=== PATIENT | female | born 1990 | race African-American/Black ===

== ENCOUNTER → 2018-01-18 17:20 | Emergency (ER) | payer OTHER ==
[2018-01-18 18:14] LABS: ABS Basophils 0.1 10^3/ul (0-0.2); ABS Eosinophils 0.3 10^3/ul (0-0.6); ABS Lymphocytes 2.2 10^3/ul (1.0-4.8); ABS Monocytes 0.5 10^3/ul (0-0.8); ABS Neutrophils 2.7 10^3/ul (1.5-7.7); ABS Nucleated RBC 0 10^3/ul; Hematocrit 42 % (35-47); Hemoglobin 14.1 g/dl (12.0-16.0); Lymphocyte % 38.3 % (25-47); Mean Corpuscular HGB Conc 34 g/dl (31-36); Mean Corpuscular Hemoglobin 29 pg (27-31); Mean Corpuscular Volume 87 fL (80-97); Mean Platelet Volume 7.6 um3 (7.4-10.4); Nucleated Red Blood Cells % 0.1; Platelet Count 404 10^3/ul (150-450); Red Blood Count 4.83 10^6/ul (4.0-5.4); Red Cell Distribution Width 14 % (10.5-15); White Blood Count 5.8 10^3/ul (3.5-10.8)
[2018-01-18 18:34] VITALS: BP 124/88
[2018-01-18 18:35] LABS: EGFR Non-African American 115.1 (>60)
--- NOTE | 2018-01-18 18:47 | RAD ---
HISTORY: Syncope COMPARISONS: None VIEWS: 4: Frontal dual-energy and lateral views of the chest. FINDINGS: CARDIOMEDIASTINAL SILHOUETTE: The cardiomediastinal silhouette is normal. MARGARET: The margaret are normal. PLEURA: The costophrenic angles are sharp. No pleural abnormalities are noted. LUNG PARENCHYMA: The lungs are clear. ABDOMEN: The upper abdomen is clear. There is no subphrenic gas. BONES AND SOFT TISSUES: No bone or soft tissue abnormalities are noted. OTHER: None. IMPRESSION: NO ACTIVE CARDIOPULMONARY DISEASE.
[2018-01-18 18:51] LABS: Urine Appearance Clear; Urine Blood Negative (Negative); Urine Color Yellow; Urine Ketones 1+ (Negative); Urine Protein Negative (Negative); Urine Specific Gravity 1.017 (1.010-1.030); Urine Urobilinogen Negative (Negative)
--- NOTE | 2018-01-19 21:17 | ED ---
Thien Culp Rebecca, scribed for Chuy Nance MD on 01/18/18 at 1802 . Syncope/Near Syncope - HPI Summary HPI Summary: Pt is a 27 y/o F who presents to ED s/p syncopal episode. 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 Prior to the episode, she felt dizzy and diaphoretic with blurred vision. Currently, she c/o generalized weakness, fatigue and intermittent, sharp left-sided CP. Denies WORRELL, N/V. Reports that she has not eaten anything today. Prior to work, she took flonase, claritin, singulair, and adderall. Similar episodes in the past after which she was given a Dx of POTS. - History Of Current Complaint Hx Obtained From: Patient Onset/Duration: Resolved Context: Witnessed, Loss Of Consciousness Activity At Onset: Other - Working Aggravating Factor(s): Nothing Alleviating Factor(s): Spontaneous Resolution Associated Signs And Symptoms: Chest Pain, Diaphoresis, Dizzy - Allergies/Home Medications Allergies/Adverse Reactions: Allergies Allergy/AdvReac Type Severity Reaction Status Date / Time No Known Allergies Allergy Verified 06/15/12 11:58 PMH/Surg Hx/FS Hx/Imm Hx Respiratory History: Denies: Hx Asthma Neurological History: Reports: Other Neuro Impairments/Disorders - POTS Denies: Hx Seizures Psychiatric History: Reports: Hx Eating Disorder, Hx Depression Infectious Disease History: No Infectious Disease History: Denies: Traveled Outside the [place] in Last 30 Days - Family History Known Family History: Positive: Other - No psychiatric FHx - Social History Alcohol Use: None Substance Use Type: Reports: None Smoking Status (MU): Never Smoked Tobacco Review of Systems Positive: Fatigue, Skin Diaphoresis - prior to syncope Positive: Blurred Vision - prior to syncope Positive: Chest Pain Negative: Vomiting, Nausea Neurological: Other - Dizzy - prior to syncope Positive: Weakness - Generalized, Syncope - reslved. Negative: Headache All Other Systems Reviewed And Are Negative: Yes Physical Exam - Summary Physical Exam Summary: VITAL SIGNS: Reviewed. GENERAL: Patient is a well-developed and nourished female who is lying comfortable in the stretcher. Patient is not in any acute respiratory distress. She speaks softly. HEAD AND FACE: No signs of trauma. No ecchymosis, hematomas or skull depressions. No sinus tenderness. EYES: PERRLA, EOMI x 2, No injected conjunctiva, no nystagmus. EARS: Hearing grossly intact. Ear canals and tympanic membranes are within normal limits. MOUTH: Oropharynx within normal limits. NECK: Supple, trachea is midline, no adenopathy, no JVD, no carotid bruit, no c- spine tenderness, neck with full ROM. CHEST: Symmetric, no tenderness at palpation LUNGS: Clear to auscultation bilaterally. No wheezing or crackles. CVS: Regular rate and rhythm, S1 and S2 present, no murmurs or gallops appreciated. ABDOMEN: Soft, non-tender. No signs of distention. No rebound no guarding, and no masses palpated. Bowel sounds are normal. EXTREMITIES: FROM in all major joints, no edema, no cyanosis or clubbing. NEURO: Alert and oriented x 3. No acute neurological deficits. Speech is normal and follows commands. SKIN: Dry and warm Triage Information Reviewed: Yes Vital Signs On Initial Exam: Initial Vitals Temp Pulse Resp BP Pulse Ox 98.2 F 102 17 133/92 100 01/18/18 17:29 01/18/18 17:29 01/18/18 17:29 01/18/18 17:29 01/18/18 17:29 Vital Signs Reviewed: Yes Diagnostics - Vital Signs Vital Signs Temp Pulse Resp BP Pulse Ox 01/18/18 17:29 98.2 F 102 17 133/92 100 - Laboratory Lab Results: Lab Results 01/18/18 01/18/18 01/18/18 Range/Units 17:25 17:25 17:25 WBC 5.8 (3.5-10.8) 10^3/ul RBC 4.83 (4.0-5.4) 10^6/ul Hgb 14.1 (12.0-16.0) g/dl Hct 42 (35-47) % MCV 87 (80-97) fL MCH 29 (27-31) pg MCHC 34 (31-36) g/dl RDW 14 (10.5-15) % Plt Count 404 (150-450) 10^3/ul MPV 7.6 (7.4-10.4) um3 Neut % (Auto) 46.5 (38-83) % Lymph % (Auto) 38.3 (25-47) % Coffee % (Auto) 8.3 H (0-7) % Eos % (Auto) 6.0 (0-6) % Baso % (Auto) 0.9 (0-2) % Absolute Neuts (auto) 2.7 (1.5-7.7) 10^3/ul Absolute Lymphs (auto) 2.2 (1.0-4.8) 10^3/ul Absolute Monos (auto) 0.5 (0-0.8) 10^3/ul Absolute Eos (auto) 0.3 (0-0.6) 10^3/ul Absolute Basos (auto) 0.1 (0-0.2) 10^3/ul Absolute Nucleated RBC 0 10^3/ul Nucleated RBC % 0.1 Sodium 137 L (139-145) mmol/L Potassium 3.5 (3.5-5.0) mmol/L Chloride 103 (101-111) mmol/L Carbon Dioxide 22 (22-32) mmol/L Anion Gap 12 H (2-11) mmol/L BUN 9 (6-24) mg/dL Creatinine 0.63 (0.51-0.95) mg/dL Est GFR ( Amer) 148.1 (>60) Est GFR (Non-Af Amer) 115.1 (>60) BUN/Creatinine Ratio 14.3 (8-20) Glucose 87 (70-100) mg/dL Lactic Acid 1.0 (0.5-2.0) mmol/L Calcium 9.2 (8.6-10.3) mg/dL Magnesium 1.9 (1.9-2.7) mg/dL Total Bilirubin 0.40 (0.2-1.0) mg/dL AST 17 (13-39) U/L ALT 15 (7-52) U/L Alkaline Phosphatase 79 (34-104) U/L Troponin I 0.00 (<0.04) ng/mL B-Natriuretic Peptide ( - 100) pg/mL Total Protein 7.6 (6.4-8.9) g/dL Albumin 4.4 (3.2-5.2) g/dL Globulin 3.2 (2-4) g/dL Albumin/Globulin Ratio 1.4 (1-3) TSH 3.50 (0.34-5.60) mcIU/mL Beta HCG, Quant < 0.60 mIU/mL Urine Color Urine Appearance Urine pH (5-9) Ur Specific [place] (1.010-1.030) Urine Protein (Negative) Urine Ketones (Negative) Urine Blood (Negative) Urine Nitrate (Negative) Urine Bilirubin (Negative) Urine Urobilinogen (Negative) Ur Leukocyte Esterase (Negative) Urine Glucose (Negative) Urine Opiates Screen (None Detect) Ur Barbiturates Screen (None Detect) Ur Phencyclidine Scrn (None Detect) Ur Amphetamines Screen (None Detect) U Benzodiazepines Scrn (None Detect) Urine Cocaine Screen (None Detect) U Cannabinoids Screen (None Detect) Serum Alcohol < 10 (<10) mg/dL 01/18/18 01/18/18 01/18/18 Range/Units 17:25 18:40 18:40 WBC (3.5-10.8) 10^3/ul RBC (4.0-5.4) 10^6/ul Hgb (12.0-16.0) g/dl Hct (35-47) % MCV (80-97) fL MCH (27-31) pg MCHC (31-36) g/dl RDW (10.5-15) % Plt Count (150-450) 10^3/ul MPV (7.4-10.4) um3 Neut % (Auto) (38-83) % Lymph % (Auto) (25-47) % Coffee % (Auto) (0-7) % Eos % (Auto) (0-6) % Baso % (Auto) (0-2) % Absolute Neuts (auto) (1.5-7.7) 10^3/ul Absolute Lymphs (auto) (1.0-4.8) 10^3/ul Absolute Monos (auto) (0-0.8) 10^3/ul Absolute Eos (auto) (0-0.6) 10^3/ul Absolute Basos (auto) (0-0.2) 10^3/ul Absolute Nucleated RBC 10^3/ul Nucleated RBC % Sodium (139-145) mmol/L Potassium (3.5-5.0) mmol/L Chloride (101-111) mmol/L Carbon Dioxide (22-32) mmol/L Anion Gap (2-11) mmol/L BUN (6-24) mg/dL Creatinine (0.51-0.95) mg/dL Est GFR ( Amer) (>60) Est GFR (Non-Af Amer) (>60) BUN/Creatinine Ratio (8-20) Glucose (70-100) mg/dL Lactic Acid (0.5-2.0) mmol/L Calcium (8.6-10.3) mg/dL Magnesium (1.9-2.7) mg/dL Total Bilirubin (0.2-1.0) mg/dL AST (13-39) U/L ALT (7-52) U/L Alkaline Phosphatase (34-104) U/L Troponin I (<0.04) ng/mL B-Natriuretic Peptide 8 ( - 100) pg/mL Total Protein (6.4-8.9) g/dL Albumin (3.2-5.2) g/dL Globulin (2-4) g/dL Albumin/Globulin Ratio (1-3) TSH (0.34-5.60) mcIU/mL Beta HCG, Quant mIU/mL Urine Color Yellow Urine Appearance Clear Urine pH 6.0 (5-9) Ur Specific [place] 1.017 (1.010-1.030) Urine Protein Negative (Negative) Urine Ketones 1+ A (Negative) Urine Blood Negative (Negative) Urine Nitrate Negative (Negative) Urine Bilirubin Negative (Negative) Urine Urobilinogen Negative (Negative) Ur Leukocyte Esterase Negative (Negative) Urine Glucose Negative (Negative) Urine Opiates Screen None detected (None Detect) Ur Barbiturates Screen None detected (None Detect) Ur Phencyclidine Scrn None detected (None Detect) Ur Amphetamines Screen Presumptive positive A (None Detect) U Benzodiazepines Scrn None detected (None Detect) Urine Cocaine Screen None detected (None Detect) U Cannabinoids Screen None detected (None Detect) Serum Alcohol (<10) mg/dL Result Diagrams: 01/18/18 17:25 01/18/18 17:25 Lab Statement: Any lab studies that have been ordered have been reviewed, and results considered in the medical decision making process. - Radiology CXR Xray Interpretation: No Acute Changes - NO ACTIVE CARDIOPULMONARY DISEASE. ED physician reviewed this report. Radiology Interpretation Completed By: Radiologist - EKG 6489 Cardiac Rate: Tachycardia - 101 bpm EKG Rhythm: Sinus Tachycardia EKG Interpretation: No ST elevations. Inverted T waves in lead III Re-Evaluation - Re-Evaluation First Eval Re-Evaluation Time: 19:46 Comment: Pt is doing well. Discussed results and D/C plan. Course/Dx Assessment/Plan: This patient is a 27-year-old female who presents to the emergency room after she was transferred from the third floor with a chief complaint of having a syncopal episode. The syncopal episode was witnessed by coworkers and they stated that she passed out for approximately 1 minute. Positive loss of consciousness. She denies any shortness of breath, chest pain , palpitations, headache, blurred vision before she passed out. At arrival to the emergency room she developed some chest pain which is sharp and is reproducible. She reports that she had her last menstrual cycle in the first to second of December. Blood test results without any significant abnormality except for sodium level of 137, urinalysis is negative for UTI. In the ED the patient was hydrated, the patient is feeling better, the patient ambulated to the bathroom without any dizziness or feeling like she is going to pass out. Urine toxicology is negative except for positive amphetamines. I discussed all the findings and test results with the patient. Patient was instructed to return to the emergency room immediately if any of the symptoms return or worsens. Plan of care was discussed with the patient and understands and agrees. All questions were answered at patient satisfaction. There were no further complaints or concerns. Lung exam before discharge: CTA B/L. Good air exchange. No wheezing or crackles heard. CVS: S1 and S2 present. No murmurs appreciated. Patient is alert and oriented x 3. Patient is hemodynamically stable. Patient will be discharged home with follow up PCP in the next 2-3 days - Diagnoses Provider Diagnoses: Vasovagal syncope Discharge - Sign-Out/Discharge Documenting (check all that apply): Discharge/Admit/Transfer - Discharge - Discharge Plan Condition: Stable Disposition: HOME Patient Education Materials: Syncope (ED) Referrals: El Arguello PA [Primary Care Provider] - 3 Days Additional Instructions: RETURN TO ED FOR ANY NEW OR WORSENING SYMPTOMS. The documentation as recorded by the Thien townsend Rebecca accurately reflects the service I personally performed and the decisions made by me, Chuy Nance MD.
== END | disposition home or self-care (01) ==
LOC: ED 17:20
DX: R55 Syncope and collapse (principal)
CPT/HCPCS: 36415; 71046; 80053; 80307; 80320; 81003; 83605; 83735; 83880; 84443; 84484; 84702; 85025; 93005; 99282; G0480

== ENCOUNTER 2018-01-19 14:55 | Emergency (ER) | payer OTHER ==
[2018-01-19 15:28] LABS: ABS Basophils 0.1 10^3/ul (0-0.2); ABS Eosinophils 0.3 10^3/ul (0-0.6); ABS Lymphocytes 1.9 10^3/ul (1.0-4.8); ABS Monocytes 0.5 10^3/ul (0-0.8); ABS Neutrophils 2.9 10^3/ul (1.5-7.7); ABS Nucleated RBC 0 10^3/ul; Eosinophil % 4.8 % (0-6); Hematocrit 39 % (35-47); Hemoglobin 13.2 g/dl (12.0-16.0); Lymphocyte % 33.6 % (25-47); Mean Corpuscular HGB Conc 34 g/dl (31-36); Mean Corpuscular Hemoglobin 30 pg (27-31); Mean Corpuscular Volume 87 fL (80-97); Mean Platelet Volume 7.2 um3 (7.4-10.4); Nucleated Red Blood Cells % 0.2; Platelet Count 382 10^3/ul (150-450); Red Blood Count 4.45 10^6/ul (4.0-5.4); Red Cell Distribution Width 14 % (10.5-15); White Blood Count 5.7 10^3/ul (3.5-10.8)
[2018-01-19 15:44] LABS: EGFR Non-African American 109.1 (>60)
--- NOTE | 2018-01-19 18:33 | ED ---
Thien Culp Rebecca, scribed for Thomas Gil on 01/19/18 at 1510 . Psychiatric Complaint - HPI Summary HPI Summary: Pt is a 27 y/o F BIBA as a 941 who presents to ED c/o depression. Pt states my mom makes me want to kill myself and that this has been an ongoing problem since childhood. She additionally c/o intermittent, diffuse CP, worse in the left side, for which she was evaluated by [facility] ED yesterday. Denies SIs currently. Lives with her mom, at her stepfathers house. - History Of Current Complaint Chief Complaint: EDMentalHealth Time Seen by Provider: 01/19/18 14:57 Hx Obtained From: Patient Onset/Duration: Still Present Character: Depressed Aggravating Factor(s): Other - Mother Alleviating Factor(s): Nothing Related History: Positive For: Prior Psychiatric Issues - Depression Has Suicidal: Denies: Thoughts - Allergies/Home Medications Allergies/Adverse Reactions: Allergies Allergy/AdvReac Type Severity Reaction Status Date / Time No Known Allergies Allergy Verified 06/15/12 11:58 Home Medications: Home Medications Dextroamphetamine/Amphetamine [Adderall Xr 30 mg Capsule] 30 mg PO DAILY [History Confirmed 01/19/18] Fexofenadine (NF) [Shelby 180 (NF)] 180 mg PO DAILY PRN 01/19/18 [History Confirmed 01/19/18] Fluticasone NASAL SPRAY 50MCG* [Flonase NASAL SPRAY 50MCG*] 2 spray BOTH NARES DAILY 01/19/18 [History Confirmed 01/19/18] LoraTADine TAB(NF) [Claritin 10 MG TAB(NF)] 10 mg PO DAILY PRN 01/19/18 [ History Confirmed 01/19/18] Montelukast Sodium TAB* [Singulair TAB*] 10 mg PO DAILY 01/19/18 [History Confirmed 01/19/18] Venlafaxine EXT RELEASE CAP* [Effexor Xr CAP*] 150 mg PO DAILY 01/19/18 [ History Confirmed 01/19/18] PMH/Surg Hx/FS Hx/Imm Hx Endocrine/Hematology History: Denies: Hx Diabetes Cardiovascular History: Denies: Hx Hypertension Respiratory History: Reports: Hx Asthma Psychiatric History: Reports: Hx Eating Disorder, Hx Depression Infectious Disease History: No Infectious Disease History: Denies: Traveled Outside the [place] in Last 30 Days - Family History Known Family History: Positive: Other - NEGATIVE PMHx: Psychiatric problems - Social History Alcohol Use: None Substance Use Type: Reports: None Smoking Status (MU): Never Smoked Tobacco Review of Systems Negative: Fever Positive: Chest Pain Positive: Depressed, Other - NEGATIVE: SIs All Other Systems Reviewed And Are Negative: Yes Physical Exam - Summary Physical Exam Summary: Appearance: Well appearing, no pain distress Skin: warm, dry, reflects adequate perfusion Head/face: normal Eyes: EOMI, PRAVEENA ENT: normal Neck: supple, non-tender Respiratory: CTA, breath sounds present Cardiovascular: RRR, pulses symmetrical ~ Abdomen: non-tender, soft Bowel: present Musculoskeletal: normal, strength/ROM intact Neuro: normal, sensory motor intact, A&Ox Psych: Depressed affect Triage Information Reviewed: Yes Vital Signs On Initial Exam: Initial Vitals Temp Pulse Resp BP Pulse Ox 98.4 F 82 16 119/83 100 01/19/18 15:00 01/19/18 15:00 01/19/18 15:00 01/19/18 15:00 01/19/18 15:00 Vital Signs Reviewed: Yes Diagnostics - Vital Signs Vital Signs Temp Pulse Resp BP Pulse Ox 01/19/18 15:00 98.4 F 82 16 119/83 100 - Laboratory Result Diagrams: 01/19/18 15:10 01/19/18 15:10 Lab Statement: Any lab studies that have been ordered have been reviewed, and results considered in the medical decision making process. Course/Dx - Course Assessment/Plan: Pt is a 27 y/o F BIBA as a 941 who presents to ED c/o depression stating my mom makes me want to kill myself starting that this has been an ongoing problem since childhood. She additionally c/o intermittent, diffuse CP, worse in the left side, for which she was evaluated by [facility] ED yesterday. Denies SIs currently. Lives with her mom, at her stepfathers house. Pt will be signed out to Dr. Gongora, pending dispo, awaiting MHE. - Differential Dx/Clinical Impression Provider Diagnosis: Depression, Suicidal ideations Discharge - Sign-Out/Discharge Documenting (check all that apply): Sign-Out Patient Signing out patient TO: Alize Gongora - Discharge Plan Condition: Stable Referrals: El Arguello PA [Primary Care Provider] - The documentation as recorded by the Thien townsend Rebecca accurately reflects the service I personally performed and the decisions made by , Thomas Gil.
[2018-01-19] MEDS ORDERED: Ibuprofen TAB* 800 MG PO ONE (20:39)
[2018-01-20] MEDS ORDERED: Venlafaxine ER (NF) 150 MG CAP.ER PO ONE (00:40)
[2018-01-20] MEDS ORDERED: Venlafaxine EXT RELEASE CAP* 75 MG ONE (01:05)
[2018-01-20] MEDS ORDERED: Venlafaxine EXT RELEASE CAP* 75 MG PO ONE (01:30)
--- NOTE | 2018-01-20 06:55 | ED ---
IReese Tiffany, scribed for Alize Gongora MD on 01/20/18 at 0100 . Progress - Progress Note Progress Note: Pt signed out from Dr. Gil, awaiting MHE and dispo plan. - Consult/PCP Time Called: 00:00 Course/Dx - Course Course Of Treatment: 27 y/o F BIBA 941 c/o depression since childhood. Pt signed out from Dr. Gil, awaiting MHE and dispo. Mental health approver spoke with Dr. Holland, psychiatry. pt will be discharged home to her mother in the morning after pt gets some rest. - Diagnoses Provider Diagnoses: Depression Discharge - Sign-Out/Discharge Documenting (check all that apply): Discharge/Admit/Transfer - Discharge Plan Condition: Stable Disposition: HOME Referrals: El Arguello PA [Primary Care Provider] - The documentation as recorded by the Reese townsend Tiffany accurately reflects the service I personally performed and the decisions made by , Alize Gongora MD.
--- NOTE | 2018-01-20 12:59 | PN ---
ED Flex Patient Progress Note Date of Service: 01/20/18 Subjective: ED flex day #1 for this 27 y.o. single, AA female brought to ED following suicidal statements in midst of interpersonal conflict. Patient now denies SI and is requesting d/c to home. Family in agreement with this. Objective: young AA female, calm, cooperative; denies SI or HI Assessment: Mood DO, NOS Plan: D/C to outpatient follow up. Vital Signs Temp Pulse Resp BP Pulse Ox 97.4 F 85 16 116/45 100 01/19/18 19:36 01/19/18 19:36 01/19/18 19:36 01/19/18 19:36 01/19/18 19:36 Lab Results - Entire Visit 01/19/18 01/19/18 15:10 15:10 WBC 5.7 RBC 4.45 Hgb 13.2 Hct 39 MCV 87 MCH 30 MCHC 34 RDW 14 Plt Count 382 MPV 7.2 L Neut % (Auto) 51.3 Lymph % (Auto) 33.6 [place] % (Auto) 9.0 H Eos % (Auto) 4.8 Baso % (Auto) 1.3 Absolute Neuts (auto) 2.9 Absolute Lymphs (auto) 1.9 Absolute Monos (auto) 0.5 Absolute Eos (auto) 0.3 Absolute Basos (auto) 0.1 Absolute Nucleated RBC 0 Nucleated RBC % 0.2 Sodium 139 Potassium 3.8 Chloride 106 Carbon Dioxide 26 Anion Gap 7 BUN 11 Creatinine 0.66 Est GFR ( Amer) 140.3 Est GFR (Non-Af Amer) 109.1 BUN/Creatinine Ratio 16.7 Glucose 100 Calcium 8.7 Total Bilirubin 0.20 AST 13 ALT 14 Alkaline Phosphatase 71 Troponin I 0.00 Total Protein 6.7 Albumin 3.9 Globulin 2.8 Albumin/Globulin Ratio 1.4 TSH 1.60 Beta HCG, Quant < 0.60 Salicylates < 2.50 Acetaminophen < 15 Serum Alcohol < 10
--- NOTE | 2018-01-20 14:43 | ED ---
Progress - Progress Note Progress Note: Ms. العراقي was seen by the MHE and felt to be stable for D/C. - Consult/PCP Time Called: 00:00 Course/Dx - Course Course Of Treatment: Ms. العراقي was seen this AM and felt to be safe for D/C. - Diagnoses Provider Diagnoses: Depression Discharge - Sign-Out/Discharge Documenting (check all that apply): Discharge/Admit/Transfer - Discharge Plan Condition: Stable Disposition: HOME Referrals: El Arguello PA [Primary Care Provider] - - Billing Disposition and Condition Condition: STABLE Disposition: HOME
[2018-01-20 15:47] VITALS: BP 130/85
== END 2018-01-20 15:47 | disposition home or self-care (01) ==
LOC: ED 14:55
DX: F32.9 Major depressive disorder, single episode, unspecified (principal); R07.9 Chest pain, unspecified; R45.851 Suicidal ideations
CPT/HCPCS: 36415; 80053; 80320; 80329; 84443; 84484; 84702; 85025; 99284; A9270-GY; G0480

== ENCOUNTER 2018-06-17 03:06 | Emergency (ER) | payer OTHER ==
[2018-06-17] MEDS ORDERED: Naproxen TAB* 250 MG PO ONE (03:24)
[2018-06-17] MEDS ORDERED: Cyclobenzaprine TAB* 10 MG PO ONE (03:24)
--- NOTE | 2018-06-17 03:26 | ED ---
Back Pain - HPI Summary HPI Summary: This patient is a 27 year old F presenting to [facility] with a chief complaint of sharp back pain [employer]. 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 She does not believe it was one discreet incident. She felt the sudden stabbing pain when she was bending over. Sitting down or laying supine relieves the pain. Pt has a Hx of a similar event back in high school. The Pt rates the pain 5/10 in severity. - History of Current Complaint Chief Complaint: EDBackInjuryPain Stated Complaint: BACK PAIN Hx Obtained From: Patient Onset/Duration: Gradual Onset Onset/Duration: Started Minutes Ago Severity Initially: Moderate Severity Currently: Moderate Pain Intensity: 5 Pain Scale Used: 0-10 Numeric Character: Sharp Alleviating Symptom(s): Position - Allergies/Home Medications Allergies/Adverse Reactions: Allergies Allergy/AdvReac Type Severity Reaction Status Date / Time No Known Allergies Allergy Verified 06/17/18 03:12 PMH/Surg Hx/FS Hx/Imm Hx Endocrine/Hematology History: Denies: Hx Diabetes Cardiovascular History: Denies: Hx Hypertension Respiratory History: Reports: Hx Asthma Psychiatric History: Reports: Hx Eating Disorder, Hx Depression Infectious Disease History: No Infectious Disease History: Denies: Traveled Outside the [place] in Last 30 Days - Family History Known Family History: Positive: Other - NEGATIVE PMHx: Psychiatric problems - Social History Alcohol Use: None Substance Use Type: Reports: None Smoking Status (MU): Never Smoked Tobacco Review of Systems Negative: Fever Positive: Myalgia - Lower back pain All Other Systems Reviewed And Are Negative: Yes Physical Exam - Summary Physical Exam Summary: Appearance: Well-appearing, Well-nourished, lying in bed comfortable Skin: Warm, dry, no obvious rash Eyes: sclera anicteric, no conjunctival pallor ENT: mucous membranes moist Neck: deferred Respiratory: No signs of respiratory distress Cardiovascular: Appears well perfused, pulses are nml Abdomen: deferred Musculoskeletal: Moving all 4 extremities without obvious discomfort. Paravertrebal tenderness in the lower back. Neurological: Awake and alert, mentation is normal, speech is fluent and appropriate Psychiatric: affect is normal, does not appear anxious or depressed Triage Information Reviewed: Yes Vital Signs On Initial Exam: Initial Vitals Temp Pulse Resp BP Pulse Ox 97.8 F 105 16 133/73 98 06/17/18 03:09 06/17/18 03:09 06/17/18 03:09 06/17/18 03:09 06/17/18 03:09 Vital Signs Reviewed: Yes Diagnostics - Vital Signs Vital Signs Temp Pulse Resp BP Pulse Ox 06/17/18 03:09 97.8 F 105 16 133/73 98 - Laboratory Lab Statement: Any lab studies that have been ordered have been reviewed, and results considered in the medical decision making process. Back Pain Course/Dx - Course Course Of Treatment: This patient is a 27 year old F presenting to [facility] with a chief complaint of sharp back pain [employer]. Examination was remarkable for a lower back muscle strain. Treatment with pain medication was discussed with the patient and the patient is agreeable with this plan. - Diagnoses Provider Diagnoses: Back strain Discharge - Sign-Out/Discharge Documenting (check all that apply): Patient Departure - Discharge - Discharge Plan Condition: Stable Disposition: HOME Prescriptions: Cyclobenzaprine TAB* [Flexeril 10 MG TAB*] 10 mg PO TID PRN #15 tab PRN Reason: Spasms Naproxen TAB* [Naprosyn 250 mg TAB*] 250 mg PO Q8H PRN #15 tab PRN Reason: Pain Patient Education Materials: Low Back Strain (ED) Forms: *Work Release Referrals: employee [facility] [Z.BUSINESS, APPLICATION, OTHER] - El Arguello PA [Primary Care Provider] - (on Tuesday for recheck and back to work exam) - Attestation Statements Document Initiated by Scribe: Yes Documenting Scribe: Leonel Jain Provider For Whom Yairibe is Documenting (Include Credential): Vance Bautista MD Scribe Attestation: Leonel Culp, scribed for Vance Bautista MD on 06/17/18 at 0343.
[2018-06-17 03:45] VITALS: BP 123/72
== END 2018-06-17 03:44 | disposition home or self-care (01) ==
LOC: ED 03:06
DX: S39.012A Strain of muscle, fascia and tendon of lower back, initial encounter (principal); X58.XXXA Exposure to other specified factors, initial encounter; Y93.F9 Activity, other caregiving; Y92.230 Patient room in hospital as the place of occurrence of the external cause; Y99.0 Civilian activity done for income or pay
CPT/HCPCS: 99282; A9270-GY

== ENCOUNTER 2018-09-23 07:27 | Emergency (ER) | payer OTHER ==
[2018-09-23] MEDS ORDERED: Ketorolac INJ* 60 MG/2 ML VIAL IM ONE (07:49)
--- NOTE | 2018-09-23 08:01 | ED ---
Back Pain - HPI Summary HPI Summary: Patient is a 27-year-old female with a history of back pain presenting to the ED with a one-day history of worsening back tightness, pain and spasms. Symptoms are discretely located over the mid lower back which she notes is in the "upside triangular shape". She states she's been seen for this in the past and was given cyclobenzaprine, but is unsure if this improves her symptoms she usually falls asleep soon following. She has tried stretching and heat without relief. She has also been taking naproxen with minimal relief. She is requesting pain medication which does not make her drowsy so she is able to continue to work. 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 She denies any bladder or bowel dysfunction. Denies any numbness or tingling. Symptoms began approximately 24 hours ago and have remained constant, are worse with bending and better with sitting upright or laying flat. - History of Current Complaint Chief Complaint: EDBackInjuryPain Stated Complaint: BACK PAIN Time Seen by Provider: 09/23/18 07:39 Hx Obtained From: Patient Onset/Duration: Sudden Onset Onset/Duration: Started Hours Ago Timing: Constant Back Pain Location: Is Discrete @ - mid low back pain Severity Initially: Moderate Severity Currently: Moderate Pain Intensity: 5 Pain Scale Used: 0-10 Numeric Character: Aching Aggravating Symptom(s): Movement, Lifting, Bending, Walking Alleviating Symptom(s): Rest, Position Associated Signs And Symptoms: Positive: Negative - Risk Factors AAA Risk Factors: Negative TAD Risk Factors: Negative Cauda Equina Risk Factors: Negative Epidural Abscess Risk Factors: Negative - Or - Allergies/Home Medications Allergies/Adverse Reactions: Allergies Allergy/AdvReac Type Severity Reaction Status Date / Time No Known Allergies Allergy Verified 09/23/18 07:37 PMH/Surg Hx/FS Hx/Imm Hx Previously Healthy: Yes Endocrine/Hematology History: Denies: Hx Diabetes Cardiovascular History: Denies: Hx Hypertension Respiratory History: Reports: Hx Asthma Psychiatric History: Reports: Hx Eating Disorder, Hx Depression - Immunization History Hx Pertussis Vaccination: No Immunizations Up to Date: Yes Infectious Disease History: No Infectious Disease History: Denies: Traveled Outside the [place] in Last 30 Days - Family History Known Family History: Positive: Other - NEGATIVE PMHx: Psychiatric problems - Social History Occupation: Employed Full-time Lives: With Family Alcohol Use: Rare Hx Substance Use: No Substance Use Type: Reports: None Hx Tobacco Use: No Smoking Status (MU): Never Smoked Tobacco Review of Systems Negative: Fever, Chills, Fatigue, Skin Diaphoresis Negative: Palpitations, Chest Pain Negative: Shortness Of Breath, Cough Genitourinary: Negative Positive: no symptoms reported, see HPI Positive: Arthralgia, Myalgia Skin: Negative All Other Systems Reviewed And Are Negative: Yes Physical Exam Triage Information Reviewed: Yes Vital Signs On Initial Exam: Initial Vitals Temp Pulse Resp BP Pulse Ox 97.8 F 91 17 135/80 98 09/23/18 07:33 09/23/18 07:33 09/23/18 07:33 09/23/18 07:33 09/23/18 07:33 Vital Signs Reviewed: Yes Appearance: Positive: Well-Appearing, Well-Nourished Skin: Positive: Warm, Skin Color Reflects Adequate Perfusion Head/Face: Positive: Normal Head/Face Inspection Eyes: Positive: EOMI, PRAVEENA, Conjunctiva Clear Neck: Positive: Supple, No Lymphadenopathy Respiratory/Lung Sounds: Positive: Clear to Auscultation, Breath Sounds Present Cardiovascular: Positive: RRR, Pulses are Symmetrical in both Upper and Lower Extremities Musculoskeletal: Positive: Pain @ - acute low back pain - no step off noted Neurological: Positive: Sensory/Motor Intact, Alert, Oriented to Person Place, Time Psychiatric: Positive: Normal, Affect/Mood Appropriate Diagnostics - Vital Signs Vital Signs Temp Pulse Resp BP Pulse Ox 09/23/18 07:33 97.8 F 91 17 135/80 98 - Laboratory Lab Statement: Any lab studies that have been ordered have been reviewed, and results considered in the medical decision making process. Back Pain Course/Dx - Course Course Of Treatment: Discuss treatment options with patient. This patient is requesting a pain medication which does not make her drowsy, I have discussed portal. She remains on Flexeril but, is unsure if this is relieving her symptoms. I have given her low back exercises stretches as well as encouraged moist heat to the area. She is given a prescription for Toradol. - Diagnoses Differential Diagnosis/HQI/PQRI: Positive: Herniated Disc, Strain, Sprain Provider Diagnoses: Acute low back pain Discharge - Sign-Out/Discharge Documenting (check all that apply): Patient Departure Patient Received Moderate/Deep Sedation with Procedure: No - Discharge Plan Condition: Stable Disposition: HOME Prescriptions: Ketorolac TAB * [Toradol TAB *] 10 mg PO Q6H #16 tab Patient Education Materials: Muscle Spasm (ED) Referrals: El Arguello PA [Primary Care Provider] - Additional Instructions: As discussed - toradol up to four times daily for back spasms Moist heat to area Take your at home cyclobenzaprine if needed (do not drive or work while on this medication) DO NOT TAKE NSAIDS WHILE ON TORADOL - Billing Disposition and Condition Condition: STABLE Disposition: Home
[2018-09-23 08:03] VITALS: BP 133/73
== END 2018-09-23 08:07 | disposition home or self-care (01) ==
LOC: ED 07:27
DX: M54.5 Low back pain (principal); F32.9 Major depressive disorder, single episode, unspecified; J45.909 Unspecified asthma, uncomplicated
CPT/HCPCS: 96372; 99282; J1885

== ENCOUNTER 2019-01-09 09:15 | Inpatient (IN) | payer OTHER ==
--- OUTSIDE RECORDS SUMMARY | 2019-01-09 09:18 | XMS REPORT | Continuity of Care Document ---
:1990 External Reference #:[id number] Author Name Alexia Ruiz Care Team Providers Name Role Phone Wesley Card D.O. Primary Care Physician Unavailable Payers Date Identification Numbers Payment Provider Subscriber Policy Number: [id number] [employer] Rivka العراقي Group Number: [id number] [address] PayID: [id number] [place] [address] Advance Directives Description No Information Available Problems Description No Information Family History Date Family Member(s) Observation Comments General Diabetes General Hypertension General Hypercholesterolemia Siblings 2 half siblings Social History Type Date Description Comments Sex Unknown Marital Status Single Lives With Roommate Occupation Unemployed ETOH Use Never used alcohol Tobacco Use Start: Unknown Patient has never smoked Recreational Drug Use Never Used Drugs Smoking Status Reviewed: 12/14/18 Patient has never smoked Exercise Type/Frequency Exercises regularly 2x week Allergies, Adverse Reactions, Alerts Description No Known Drug Allergies Medications Active Medications SIG Qnty Indications Ordering Provider Date Venlafaxine HCL ER Unknown 150mg Caps ER 24HR Adderall 15mg Unknown Tablets Immunizations Description No Information Available Vital Signs Date Vital Result Comment 12/14/2018 1:47pm Height 64 inches 5'4" Weight 250.00 lb Heart Rate 86 /min BP Systolic Sitting 106 mmHg left upper arm large cuff BP Diastolic Sitting 62 mmHg left upper arm large cuff Respiratory Rate 14 /min O2 % BldC Oximetry 98 % BMI (Body Mass Index) 42.9 kg/m2 10/31/2018 8:22am Height 64 inches 5'4" Weight 251.12 lb Heart Rate 94 /min BP Systolic Sitting 104 mmHg Lue large cuff BP Diastolic Sitting 68 mmHg Lue large cuff Respiratory Rate 12 /min O2 % BldC Oximetry 98 % BMI (Body Mass Index) 43.1 kg/m2 Neck Circumference in inches 16.50 Results Description No Information Available Procedures Date Code Description Status 10/31/2018 88651 Sleep Study Unattended,HRT Rate,Oxygen Sat,Resp Completed Effort/Airflow Encounters Type Date Location Provider Dx Diagnosis Office Visit 12/14/2018 [facility] G47.33 Obstructive sleep 2:00p [facility] ap[facility] (adult) [facility] (pediatric) E66.9 Obesity, unspecified Office Visit 10/31/2018 8:00a [facility]ureen Mcknight, R06.[address] [facility] R53.83 Other fatigue E66.09 Other obesity due to excess calories Z68.41 Body mass index (BMI) 40.0-44.9, adult Plan of Treatment Future Appointment(s):01/31/2019 2:30 pm - Angelica Wang NP at [facility]12/14/2018 - Angelica Wang NPG47.33 Obstructive sleep apnea (adult) (pediatric)New Orders:[facility], Ordered: 12/14/18Follow up:6 weeksRecommendations:You are being set up with CPAP for your sleep apnea through [facility]. They will callyou to set up an appointment to get a mask fitting and picking belt operator your machine. If you have any sleepiness while driving you MUST avoid operating a vehicle or machinery. If you have difficulty with your equipment, or need to replace your mask or hoses, please contact your homecare agency. If you have any further questions, please call the [facility] at [phone] Obesity, unspecifiedRecommendations:Keep up the good work with your weight loss efforts! When you go for your surgery be sure to bring your CPAP machine with you.
[2019-01-09] MEDS ORDERED: ceFAZolin 2 GM PREMIX in ORs 2 GM/50 ML BAG IVPB ONE (10:04)
[2019-01-09] MEDS ORDERED: Heparin VIAL(*) 5000 UNITS/ML VIAL (FIVE THOUSAND) ONE (10:04)
[2019-01-09] MEDS ORDERED: ceFAZolin 1 GM in Dextrose (*) 1 GM/50 ML BAG IVPB ONE (10:04)
[2019-01-09] MEDS ORDERED: Propofol* 10 MG/ML 20 ML BTL ONE (11:06)
[2019-01-09] MEDS ORDERED: Lidocaine 2% PF * 5 ML VIAL ONE (11:06)
[2019-01-09] MEDS ORDERED: Ondansetron INJ* 2 MG/ML VIAL ONE ×2 (11:06→16:17)
[2019-01-09] MEDS ORDERED: fentaNYL* 50 MCG/ML 2 ML VIAL (100 MCG VIAL) ONE ×5 (11:06→15:25)
[2019-01-09] MEDS ORDERED: Ketorolac INJ* 30 MG/ML 1 ML VIAL ONE (11:06)
[2019-01-09] MEDS ORDERED: Dexamethasone IV* 4 MG/ML 1 ML (4 MG) ONE (11:06)
[2019-01-09] MEDS ORDERED: Midazolam* 1 MG/ML 10 ML VIAL (10 MG) ONE (11:06)
[2019-01-09] MEDS ORDERED: Rocuronium* 10 MG/ML VIAL ONE (11:06)
[2019-01-09] MEDS ORDERED: Bupivacaine 0.25% EPI 200,000* 30 ML SDV ONE (11:57)
[2019-01-09] MEDS ORDERED: Metoprolol Tartrate IV* 1 MG/ML 5 ML VIAL ONE (12:54)
[2019-01-09] MEDS ORDERED: HYDROmorphone INJ1* 1 MG/ML SYRINGE ONE ×2 (13:32→16:46)
[2019-01-09] MEDS ORDERED: Neostigmine Methylsulfate* 1 MG/ML 10 ML VIAL (1 mg/ml) ONE (13:36)
[2019-01-09] MEDS ORDERED: Glycopyrrolate IV* 0.2 MG/ML 1 ML VIAL ONE (13:36)
--- NOTE | 2019-01-09 13:50 | OP ---
Operative Report - Blank - Operative Report Date of Operation: 01/09/19 Note: Brief Operative Note Preop Dx: morbid obesity Postop Dx: same Procedure: laparoscopic sleeve gastrectomy Anesthesia: GET Surgeon: Yesenia Csr Technician: SHON Mcdaniels Fluids: 1500 ml RL EBL: 10 ml Specimen: portion of stomach Drains: none Findings: dictated
[2019-01-09] MEDS ORDERED: HYDROmorphone INJ1* 1 MG/ML SYRINGE IV SLOW PU PRN (13:51)
[2019-01-09] MEDS ORDERED: HYDROcodone/ACET. 7.5/325 LIQ* 15 ML UDC PO PRN (13:51)
[2019-01-09] MEDS ORDERED: Acetaminophen ADULT LIQ* 650 MG/20.3 ML UDC PO PRN (13:51)
[2019-01-09] MEDS ORDERED: Scopolamine 1.5 mg* PATCH TRANSDERM PRN (14:17)
[2019-01-09] MEDS ORDERED: Ondansetron INJ* 2 MG/ML VIAL IV PRN (14:17)
[2019-01-09] MEDS ORDERED: Naloxone* 0.4 MG/ML 1 ML VIAL IV PRN (14:17)
[2019-01-09] MEDS ORDERED: HYDROmorphone INJ1* 1 MG/ML SYRINGE IV PRN (14:17)
[2019-01-09] MEDS: fentaNYL* 50 MCG/ML 2 ML VIAL (100 MCG VIAL) IV PRN ×5 (14:20→15:26)
[2019-01-09] MEDS: Lactated Ringers 1000 ML Bag* 1,000 ML IV SCH ×3 (14:23→23:58)
[2019-01-09] MEDS ORDERED: Scopolamine 1.5 mg* PATCH ONE (16:17)
[2019-01-09] MEDS: HYDROmorphone INJ1* 1 MG/ML SYRINGE IV SLOW PU PRN ×2 (16:48→22:41)
--- NOTE | 2019-01-09 18:07 | OP ---
CC: [facility]; Dr. Wesley Card * DATE OF OPERATION: 01/09/19 - ROOM #353 DATE OF : 89 SURGEON: Anam Patterson MD. TEST DESIGNER: SHON Montano. ANESTHESIOLOGIST: Panfilo Lechuga MD. ANESTHESIA: General endotracheal. PRE-OP DIAGNOSIS: Clinically severe obesity. POST-OP DIAGNOSIS: Clinically severe obesity. OPERATIVE PROCEDURE: Laparoscopic sleeve gastrectomy. ESTIMATED BLOOD LOSS: Minimal. IV FLUIDS: Crystalloids. SPECIMEN: Portion of stomach. DRAIN: None. COMPLICATIONS: None. COUNTS: Instrument, needle, and sponge counts correct. DESCRIPTION OF PROCEDURE: The patient was brought to the operating room and placed on table supine. Sequential compression devices were placed on both lower extremities and general anesthesia was administered. The patient was positioned and padded appropriately. She received appropriate intravenous antibiotics. She was prepped and draped in usual sterile fashion and time-out was performed. Local anesthetic was infiltrated into the skin and soft tissue prior to making each incision. Entry to the abdomen was through a left upper quadrant incision accommodating a 5 mm optical trocar. After accessing the peritoneal cavity, carbon dioxide was insufflated to a pressure of 15 mmHg. Under direct visualization, 12- mm bladeless trocars were placed in the supraumbilical midline and right upper quadrant. A 5-mm trocar was placed in the left upper quadrant laterally. A Ramirez liver retractor was placed percutaneously in the subxiphoid position and used to elevate the left lobe of the liver. Gastric anatomy appeared normal. Mobilization of the stomach was performed with LigaSure starting 6 cm proximal to the pylorus on the greater curvature. The skeletonization of the stomach was performed all the way up to the gastroesophageal junction and posterior short gastric vessels were taken down to free the fundus completely. Subsequently, a sleeve gastrectomy was performed over a 40-Occitan bougie with several firings of the endo VARINDER stapler using purple reinforced cartridges. After completing the sleeve gastrectomy and assuring hemostasis, the stomach was retrieved to the right upper quadrant port side using an endoscopic retrieval bag. The hemostasis in the abdomen was assured. The ports were then removed and carbon dioxide was released. Wounds were closed with 4-0 Monocryl to approximate the skin and Steri-Strips were applied. The patient tolerated the procedure well was extubated and transferred to recovery in stable condition. [id number]/[facility] #: [id number] [facility] MED[facility] CENTERMita
[2019-01-09] MEDS: Ketorolac INJ* 30 MG/ML 1 ML VIAL IV PRN (19:52)
[2019-01-09] MEDS: Famotidine IV* 10 MG/ML 2 ML (20 mg) IV SLOW PU SCH (21:17)
[2019-01-09] MEDS: Heparin VIAL(*) 5000 UNITS/ML VIAL (FIVE THOUSAND) SUBCUT SCH (21:17)
[2019-01-09] MEDS: Ondansetron INJ* 2 MG/ML VIAL IV PRN (21:42)
[2019-01-10] MEDS: Ketorolac INJ* 30 MG/ML 1 ML VIAL IV PRN ×2 (03:24→11:47)
[2019-01-10] MEDS: Ondansetron INJ* 2 MG/ML VIAL IV PRN ×3 (05:14→21:31)
[2019-01-10] MEDS: Heparin VIAL(*) 5000 UNITS/ML VIAL (FIVE THOUSAND) SUBCUT SCH ×3 (05:15→21:31)
[2019-01-10] MEDS: Lactated Ringers 1000 ML Bag* 1,000 ML IV SCH (06:33)
[2019-01-10] MEDS ORDERED: Pantoprazole TAB * 40 MG TAB PO PRN (08:11)
[2019-01-10] MEDS ORDERED: Cetirizine* 10 MG TAB PO PRN (08:11)
[2019-01-10] MEDS: Famotidine IV* 10 MG/ML 2 ML (20 mg) IV SLOW PU SCH ×2 (08:33→21:31)
[2019-01-10] MEDS: HYDROmorphone INJ1* 1 MG/ML SYRINGE IV SLOW PU PRN ×2 (08:48→21:30)
[2019-01-10] MEDS: Montelukast Sodium TAB* 10 MG PO PRN ×2 (08:49→11:47)
[2019-01-10] MEDS ORDERED: Amphetamine/Dextroamph ER(NF) 10 MG CAP.ER PO PRN (09:00)
[2019-01-10] MEDS: Fluticasone NASAL SPRAY 50MCG* 16 gm SPRAY BTL BOTH NARES PRN (11:48)
[2019-01-10] MEDS: D5W 1/2 NS KCl 20 Meq 1000 ML* 1,000 ML IV SCH ×2 (13:11→21:29)
[2019-01-10] MEDS ORDERED: Venlafaxine EXT RELEASE CAP* 75 MG PO SCH (18:00)
[2019-01-10] MEDS: CMCS: Venlafaxine TAB (NF) 25 MG TAB PO SCH (18:26)
[2019-01-11] MEDS: D5W 1/2 NS KCl 20 Meq 1000 ML* 1,000 ML IV SCH ×3 (05:37→21:46)
[2019-01-11] MEDS: Heparin VIAL(*) 5000 UNITS/ML VIAL (FIVE THOUSAND) SUBCUT SCH ×3 (05:38→21:55)
[2019-01-11] MEDS: CMCS: Venlafaxine TAB (NF) 25 MG TAB PO SCH ×2 (08:58→21:54)
[2019-01-11] MEDS: Famotidine IV* 10 MG/ML 2 ML (20 mg) IV SLOW PU SCH ×2 (08:58→21:55)
[2019-01-11] MEDS: Fluticasone NASAL SPRAY 50MCG* 16 gm SPRAY BTL BOTH NARES PRN (08:58)
[2019-01-11] MEDS: Ketorolac INJ* 30 MG/ML 1 ML VIAL IV PRN (08:58)
[2019-01-11] MEDS: Ondansetron INJ* 2 MG/ML VIAL IV PRN (23:34)
[2019-01-12] MEDS: Heparin VIAL(*) 5000 UNITS/ML VIAL (FIVE THOUSAND) SUBCUT SCH (05:41)
[2019-01-12] MEDS: D5W 1/2 NS KCl 20 Meq 1000 ML* 1,000 ML IV SCH (05:41)
[2019-01-12] MEDS: CMCS: Venlafaxine TAB (NF) 25 MG TAB PO SCH (08:43)
[2019-01-12] MEDS: Famotidine IV* 10 MG/ML 2 ML (20 mg) IV SLOW PU SCH (08:44)
--- NOTE | 2019-01-12 09:22 | PN ---
Progress Note - Progress Note Date of Service: 01/12/19 Note: S: POD #3. Patient seen w/ Dr. Patterson. Doing better last pm and this am re: intake. Not much pain. Did req one dose of Zofran last night. Ambulating well. O: Vital Signs - 8 hr 01/12/19 03:39 Temperature 98.3 F Pulse Rate 72 Respiratory 16 Rate Blood Pressure 143/67 (mmHg) O2 Sat by Pulse 98 Oximetry Intake and Output Last 24 Hours 01/10/19 01/11/19 01/12/19 01/13/19 06:59 06:59 06:59 06:59 Intake Total 4470 3228 4192 Output Total 1100 3825 3530 Balance 3370 -597 662 Weight 250 lb 3.2 oz Intake: IV Fluids 4470 2973 2992 3G CEFAZOLIN 100 D5W 1/2 NS 20 meq KCL 1993 2992 LR 4370 980 Oral 0 255 1200 Output: Urine 1100 3825 3500 Emesis 30 Other: Estimated Void Small # Bowel Movements 0 0 0 # Voids 3 2 Gen: just woke up; NAD Heart: reg Lungs: clear Abd: lap sites clean, dry; +BS; soft; no sig tenderness A: s/p lap sleeve gastrectomy, improved P: ok for d/c home today; instructions reviewed
--- NOTE | 2019-01-12 12:30 | DS ---
CC: [facility] DISCHARGE SUMMARY: DATE OF ADMISSION: 01/09/19 DATE OF DISCHARGE: 01/12/19 ATTENDING SURGEON: Dr. Anam Patterson. HOSPITAL COURSE: Please refer to admission history and physical and operative note for details. The patient underwent laparoscopic sleeve gastrectomy with Dr. Patterson on 01/09/19. Surgery itself was unremarkable. The patient's postoperative course was notable for difficulties with pain management a nd nausea with occasional vomiting. She required additional time in the hospital to maintain IV hydr ation. As of the morning of postoperative day #3, she was doing much better with most of her nausea l argely resolved and tolerating bariatric clear liquids well. She was seen by Dr. Patterson (see separa te progress note from the same date). She has a followup next week at [facility]. Instructions were revi ewed regarding diet, wound care and activity. She will continue her Effexor with immediate release t ablets and contact her prescriber to make dosage adjustment from her usual 150 extended release. The patient was discharged home in good condition. SHON MILES [id number]/[facility] #: [id number]
[2019-01-12 12:53] VITALS: BP 115/50
[2019-01-12] MEDS ORDERED: Scopolamine PATCH Remove* 1 NOTE MISC PATCH OFF ONE (16:18)
== END 2019-01-12 11:05 | disposition home or self-care (01) | DRG 621 ==
LOC: AA 09:15 → SSU 16:40
PROVIDERS: ADMIT Surgery; ATTEND Surgery
PROC: 0DB64Z3 Excision of Stomach, Percutaneous Endoscopic Approach, Vertical (ICD-10-PCS; principal; 2019-01-09 11:15)
DX: E66.01 Morbid (severe) obesity due to excess calories (principal); G47.33 Obstructive sleep apnea (adult) (pediatric); F41.9 Anxiety disorder, unspecified; F32.9 Major depressive disorder, single episode, unspecified; R73.03 Prediabetes; R11.2 Nausea with vomiting, unspecified; J45.909 Unspecified asthma, uncomplicated; Z80.0 Family history of malignant neoplasm of digestive organs; Z68.41 Body mass index [BMI] 40.0-44.9, adult; Z83.3 Family history of diabetes mellitus; Z82.49 Family history of ischemic heart disease and other diseases of the circulatory system; Z82.3 Family history of stroke; Z82.61 Family history of arthritis; Z83.49 Family history of other endocrine, nutritional and metabolic diseases; Z81.8 Family history of other mental and behavioral disorders
CPT/HCPCS: 43775; 81025; 88307; A9270-GY; J0690; J1100; J1170; J1644; J1885; J2250; J2405; J2704; J2710; J3010; J3490